=== PATIENT | male | born 1975 | race Caucasian/White ===

== ENCOUNTER 2024-09-18 04:21 | Emergency (ER) | payer SELFPAY ==
[~2024-09-18] VITALS: Ht 172.7 cm; Wt 90.0 kg
[2024-09-18 04:30] VITALS: TEMP 97.4; O2SAT 98
[2024-09-18 06:14] LABS: BASOPHILS % 0.6 % (0.0-2.0); EOSINOPHILS % 3.4 % (0.0-5.0); HEMOGLOBIN. 12.4 g/dL (14.0-18.0); LYMPHOCYTES % 37.4 % (20.0-50.0); MEAN CORPUSCULAR HEMOGLOBIN 28.6 pg (28.0-32.0); MEAN CORPUSCULAR HGB CONC 33.5 g/dL (31.0-37.0); MEAN CORPUSCULAR VOLUME 85.6 fL (80.0-94.0); MEAN PLATELET VOLUME 7.4 fl (7.4-10.4); MONOCYTES % 6.2 % (2.0-8.0); NEUTROPHILS % 52.4 % (40.0-76.0); PLATELET 260 x1000/uL (130-400); RED BLOOD CELL COUNT 4.32 mill/uL (4.7-6.1); RED CELL DISTRIBUTION WIDTH 14.3 % (11.6-14.6); WHITE BLOOD COUNT 5.7 x1000/uL (4.5-11.0)
[2024-09-18 06:23] LABS: CARBON DIOXIDE 26 mEq/L (21-32); CHLORIDE 109 mEq/L (98-107); POTASSIUM 3.6 mEq/L (3.5-5.1); SODIUM 142 mEq/L (136-145)
[2024-09-18 06:24] LABS: CALCIUM 9.2 mg/dL (8.7-10.4)
[2024-09-18 06:29] LABS: CREATININE 0.9 mg/dL (0.6-1.3); GLUCOSE 108 mg/dL (70-105); UREA NITROGEN BLOOD 17 mg/dL (9-23)
[2024-09-18 06:30] LABS: ACETAMINOPHEN < 2 ug/mL (10-30)
[2024-09-18 06:33] LABS: ETHANOL BLOOD < 10 mg/dL (<10)
[2024-09-18 11:39] VITALS: BP 118/80; PULSE 72; RESP 16; O2SAT 99
== END 2024-09-18 12:16 | disposition home or self-care (01) ==
LOC: ER 04:21
DX: F20.9 Schizophrenia, unspecified (principal); Z76.0 Encounter for issue of repeat prescription
CPT/HCPCS: 80048; 80307; 80329; 80320; 85025; 36415; 99283; Z7610 ×3; G0480